=== PATIENT | female | born 1970 | race Caucasian/White ===

== ENCOUNTER 2020-06-22 19:56 | Emergency (ER) | payer BC ==
[~2020-06-22] VITALS: Ht 160 cm; Wt 80.7 kg
[2020-06-22 20:33] LABS: BASOPHILS # (AUTO) 0.1 (0.0-0.1); EOSINOPHILS # (AUTO) 0.3 (0.0-0.4); EOSINOPHILS % 2.8 % (0.0-6.0); HEMOGLOBIN 12.8 g/dL (12.0-16.0); LYMPHOCYTES # (AUTO) 2.4 (1.0-3.2); LYMPHOCYTES % 26.8 % (18.0-39.1); MEAN CORPUSCULAR HEMOGLOBIN 28.8 pg (28-32); MEAN CORPUSCULAR HGB CONC 32.8 g/dL (31-35); MEAN CORPUSCULAR VOLUME 87.6 fL (81-99); MONOCYTES # (AUTO) 0.7 (0.2-0.8); MONOCYTES % 8.3 % (4.4-11.3); NEUTROPHILS # (AUTO) 5.3 (2.1-6.9); NEUTROPHILS % 60.8 % (38.7-80.0); PLATELET COUNT 188 x10e3/uL (140-360); RED BLOOD COUNT 4.45 x10e6/uL (3.6-5.1)
[2020-06-22 20:47] LABS: ANION GAP 15.7 mmol/L (8-16); BLOOD UREA NITROGEN 11 mg/dL (7-26); BUN/CREATININE RATIO 13 (6-25); CALCIUM 9.5 mg/dL (8.4-10.2); CARBON DIOXIDE 25 mmol/L (22-29); CHLORIDE 101 mmol/L (98-107); CREATININE, SERUM 0.83 mg/dL (0.57-1.11); EST GLOMERULAR FILTRATION RATE > 60 ML/MIN (60-); GLUCOSE 97 mg/dL (74-118); POTASSIUM 3.7 mmol/L (3.5-5.1); SODIUM 138 mmol/L (136-145)
[2020-06-22 20:54] LABS: BILIRUBIN,URINE NEGATIVE (NEGATIVE); CLARITY,URINE SL CLOUDY (CLEAR); COLOR,URINE YELLOW (YELLOW); KETONES,URINE TRACE (NEGATIVE); LEUKOCYTE ESTERASE ,URINE NEGATIVE (NEGATIVE); NITRITE,URINE NEGATIVE (NEGATIVE); PROTEIN,URINE DIPSTICK NEGATIVE (NEGATIVE); URINE UROBILINOGEN 0.2 mg/dL (0.2 - 1)
--- NOTE | 2020-06-22 20:57 | Emergency Department Note ---
History of Present Illnes History of Present Illness Chief Complaint: Hypertension History of Present Illness This is a 50 year old female PRESENTS TO THE ER C/O ELEVATED BP; PT STATES SHE WAS AT AN URGENT CARE AND TOLD TO COME TO THE ER STATING "THEY COULD NOT HELP ME AND I WAS HAVING A HYPERTENSIVE CRISIS"; PT REPORTS BP AT URGENT WAS 165/101; PT REPORTS PURVIS X4 DAYS; PT DENIES CP OR SOB; DENIES DIZZINESS, BLURRED VISION OR N/V; NAD NOTED AT THIS TIME;. Historian: Patient Arrival Mode: Car Dance Choreographer Required: No Onset (how long ago): day(s) (4) Location: HEAD Quality: HEADACHE Radiation: Reports non-radiation Severity: mild Onset quality: gradual Duration (how long): day(s) (4) Timing of current episode: sporadic Progression: waxing and waning Chronicity: new Context: Denies recent illness, Denies recent surgery, Denies trauma/injury Relieving factors: none Exacerbating factors: none Associated symptoms: Reports denies other symptoms Past Medical/Family History Physician Review I have reviewed the patient's past medical and family history. Any updates have been documented here. Past Medical History Recent Fever: No Clinical Suspicion of Infectio: No New/Unexplained Change in Ment: No Past Medical History: Hypertension, Depression Past Surgical History: Other Surgery: X2 Social History Smoking Cessation: Never Smoker Alcohol Use: Occasional Any Illegal Drug Use: No Physically hurt or threatened: No Family History Family history of heart diseas: No Review of Systems Review of Systems Constitutional: Reports no symptoms EENTM: Reports no symptoms Cardiovascular: Reports no symptoms Respiratory: Reports no symptoms Gastrointestinal: Reports no symptoms Genitourinary: Reports no symptoms Musculoskeletal: Reports no symptoms Integumentary: Reports no symptoms Neurological: Reports as per HPI Psychological: Reports no symptoms Endocrine: Reports no symptoms Hematological/Lymphatic: Reports no symptoms Physical Exam Related Data Allergies: Coded Allergies: No Known Allergies (Unverified , 06/22/20) Triage Vital Signs Vital Signs Date Time Temp Pulse Resp B/P (MAP) Pulse Ox O2 Delivery O2 Flow Rate FiO2 06/22/20 20:18 99.8 76 18 155/100 100 Room Air Vital signs reviewed: Yes Physical Exam CONSTITUTIONAL Constitutional: Present well-developed, Present well-nourished; Absent distressed HENT HENT: Present normocephalic, Present atraumatic, Present oropharynx clear/moist, Present nose normal HENT L/R: Present left ext ear normal, Present right ext ear normal EYES Eyes: Reports PERRL, Reports conjunctivae normal NECK Neck: Present ROM normal PULMONARY Pulmonary: Present effort normal, Present breath sounds normal CARDIOVASCULAR Cardiovascular: Present regular rhythm, Present heart sounds normal, Present capillary refill normal, Present normal rate GASTROINTESTINAL Abdominal: Present soft, Present nontender, Present bowel sounds normal GENITOURINARY Genitourinary: Present exam deferred SKIN Skin: Present warm, Present dry MUSCULOSKELETAL Musculoskeletal: Present ROM normal NEUROLOGICAL Neurological: Present alert, Present oriented x 3, Present no gross motor or sensory deficits PSYCHOLOGICAL Psychological: Present mood/affect normal, Present judgement normal Results Laboratory Result Diagram: 06/22/20202206/22/202022 Laboratory Laboratory Tests Test 06/22/20 20:30 06/22/20 20:23 White Blood Count 8.79 x10e3/uL (4.8-10.8) Red Blood Count 4.45 x10e6/uL (3.6-5.1) Hemoglobin 12.8 g/dL (12.0-16.0) Hematocrit 39.0 % (34.2-44.1) Mean Corpuscular Volume 87.6 fL (81-99) Mean Corpuscular Hemoglobin 28.8 pg (28-32) Mean Corpuscular Hemoglobin Concent 32.8 g/dL (31-35) Red Cell Distribution Width 13.0 % (11.7-14.4) Platelet Count 188 x10e3/uL (140-360) Neutrophils (%) (Auto) 60.8 % (38.7-80.0) Lymphocytes (%) (Auto) 26.8 % (18.0-39.1) Monocytes (%) (Auto) 8.3 % (4.4-11.3) Eosinophils (%) (Auto) 2.8 % (0.0-6.0) Basophils (%) (Auto) 1.0 % (0.0-1.0) Neutrophils # (Auto) 5.3 (2.1-6.9) Lymphocytes # (Auto) 2.4 (1.0-3.2) Monocytes # (Auto) 0.7 (0.2-0.8) Eosinophils # (Auto) 0.3 (0.0-0.4) Basophils # (Auto) 0.1 (0.0-0.1) Absolute Immature Granulocyte (auto 0.03 x10e3/uL (0-0.1) Sodium Level 138 mmol/L (136-145) Potassium Level 3.7 mmol/L (3.5-5.1) Chloride Level 101 mmol/L (98-107) Carbon Dioxide Level 25 mmol/L (22-29) Anion Gap 15.7 mmol/L (8-16) Blood Urea Nitrogen 11 mg/dL (7-26) Creatinine 0.83 mg/dL (0.57-1.11) Estimat Glomerular Filtration Rate > 60 ML/MIN (60-) BUN/Creatinine Ratio 13 (6-25) Glucose Level 97 mg/dL (74-118) Calcium Level 9.5 mg/dL (8.4-10.2) Lab results reviewed: Yes Imaging Imaging results reviewed: Yes Impressions Procedure: [id number] CT/CT BRAIN WO Exam Date: Exam Time: REPORT STATUS: Signed History: Headaches Comparison studies: None Technique: Axial images were obtained from the skull base to the vertex. Coronal and sagittal reconstructions obtained from the axial data. Dose modulation, iterative reconstruction, and/or weight based adjustment of the mA/kV was utilized to reduce the radiation dose to as low as reasonably achievable. Intravenous contrast: None Findings: Scalp/skull: No abnormalities. No fractures, blastic or lytic lesions. Extra-axial spaces: No masses. No fluid collections. Brain sulci: Appropriate for age. Ventricles: Normal in size and configuration. No hydrocephalus. Parenchyma: No abnormal densities. No masses, hemorrhage, acute or chronic cortical vascular insults. Sellar/suprasellar region: No abnormalities Craniocervical junction: Patent foramen magnum. No Chiari one malformation. IMPRESSION: No intracranial abnormalities. Incidental findings: 1. Diffuse nonspecific opacification of the left middle ear and mastoid and off all the mastoid air cells 2. Degenerative changes of the partially visualized temporomandibular joints Signed by: Dr. Jesus Alberto Castro M.D. on 06/22/2020 9:07 PM Dictated By: JESUS ALBERTO CASTRO MD, MD Transcribed By: DEO on 06/22/202106 COPY TO: YENI PATEL MD~ Procedures 12 Lead ECG Interpretation ECG Interpretation : ECG: ECG 1 Dance Choreographer: Interpreted by ED physician Date: Jun 22, 2020 Time: 20:26 Prior ECG tracings: reviewed Rhythm: sinus rhythm Rate: normal BPM: 64 ST segments normal: Yes T waves normal: Yes Q waves: V1, V2 Clinical Impression: non-specific ECG Assessment & Plan Medical Decision Making MDM PT WITH INTERMITTENT HEADACHE FOR 4 DAYS AND ELEVATED BLOOD PRESSURE CBC, BMP, EKG, CT BRAIN, UA ORDERED TO EVAL FOR RENAL INSUFFICIENCY/FAILURE, INTRACRANIAL ABNORMALITY, UTI, ELECTROLYTE ABNORMALITY Assessment & Plan Final Impression: (1) Headache (2) HTN (hypertension) Depart Disposition: HOME, SELF-CARE Last Vital Signs Date Time Temp Pulse Resp B/P (MAP) Pulse Ox O2 Delivery O2 Flow Rate FiO2 06/22/20 20:18 99.8 76 18 155/100 100 Room Air YENI PATEL MD Jun 22, 2020 20:57
[2020-06-22 21:04] LABS: BACTERIA,URINE MODERATE /HPF; RBC,URINE 0-5 /HPF (0-5)
--- NOTE | 2020-06-22 21:11 | Diagnostic Imaging Report ---
History: Headaches Comparison studies: None Technique: Axial images were obtained from the skull base to the vertex. Coronal and sagittal reconstructions obtained from the axial data. Dose modulation, iterative reconstruction, and/or weight based adjustment of the mA/kV was utilized to reduce the radiation dose to as low as reasonably achievable. Intravenous contrast: None Findings: Scalp/skull: No abnormalities. No fractures, blastic or lytic lesions. Extra-axial spaces: No masses. No fluid collections. Brain sulci: Appropriate for age. Ventricles: Normal in size and configuration. No hydrocephalus. Parenchyma: No abnormal densities. No masses, hemorrhage, acute or chronic cortical vascular insults. Sellar/suprasellar region: No abnormalities Craniocervical junction: Patent foramen magnum. No Chiari one malformation. IMPRESSION: No intracranial abnormalities. Incidental findings: 1. Diffuse nonspecific opacification of the left middle ear and mastoid and off all the mastoid air cells 2. Degenerative changes of the partially visualized temporomandibular joints Signed by: Dr. Kerwin Castro M.D. on 06/22/2020 9:07 PM
--- OUTSIDE RECORDS SUMMARY | 2020-06-22 22:20 | XMS REPORT | Continuity of Care Document ---
Author Author [facility] t Organization [facility] Address [address] [place] [address] Phone Unavailable Care Team Providers Care Supervisor [address] Name Role Phone Linus PATEL Attphyedita Unavailable Problems Condition Name Condition Details Condition Category Status Onset Date Resolution Date Last Treatment Date Treating Clinician Comments Source Mixed anxiety and depressive disorder Mixed Anxiety and Depr essive Disorder Problem Active [facility] Hypertensive disorder Hypertensive Disorder Problem Active [facility] Allergies, Adverse Reactions, Alerts This patient has no known allergies or adverse reactions. Social History Smoking Status Start Date Stop Date Source Former Smoker [facility] rudi Medications Ordered Medication Name Filled Medication Name Start Date Stop Da te Current Medication? Ordering Clinician Indication Dosage Frequency Signature (SIG) Comments Components Source bupropion HCl XL 300 mg 24 hr tablet, ex tended release Take 1 tablet every day by oral route for 30 days. bupropion HCl XL 300 mg 24 hr tablet, ex tended release Take 1 tablet every day by oral route for 30 days. No 1 Q1D bupropion HCl XL 300 mg 24 hr tablet, extended release Take 1 tablet every day by oral route for 30 days. [facility] citalopram 40 mg tablet Take 1 tablet every day by ora l route. citalopram 40 mg tablet Take 1 tablet every day by oral route. No 1 Q1D citalopram 40 mg tablet Take 1 tablet every day by oral route. [facility] lisinopril 20 mg-hydrochlorothiazide 12. 5 mg tablet Take 2 tablets every day by oral route in the morning for 90 days. lisinopril 20 mg-hydrochlorothiazide 12. 5 mg tablet Take 2 tablets every day by oral route in the morning for 90 days. No 2 Q1D lisinopril 20 mg-hydrochlorothiazide 12.5 mg tablet Take 2 tablets every day by oral route in the morning for 90 days. [facility] zolpidem 10 mg tablet Take 1 tablet ever y day by oral route at bedtime for 30 days. zolpidem 10 mg tablet Take 1 tablet ever y day by oral route at bedtime for 30 days. No 1 Q1D zolpidem 10 mg tablet Take 1 tablet every day by oral route at bedtime for 30 days. [facility] Immunizations Ordered Immunization Name Filled Immunization Name Date Status Comments Source Tdap Tdap 2019-10-14 16:09:[address] [facility] influenza, injectable, quadrivalent, preservative free influenza, injectable, quadrivalent, preservative free 2019-10-14 16:09:21 Completed [facility] zoster recombinant - 0.5 mL vial(s) zoster recombinant - 0.5 mL vial(s) Unknown Completed [facility] Vital Signs Vital Name Observation Time Observation Value Comments Source BP Diastolic 2019-10-14 00:00:00 100 mm[Hg] [facility] Height 2019-10-14 00:00:00 63.75 [in_i] [facility] BMI (Body Mass Index) 2019-10-14 00:00:00 29.9 kg/m2 [facility] BP Systolic 2019-10-14 00:00:00 138 mm[Hg] [facility] Body Weight 2019-10-14 00:00:00 173 [lb_av] [facility] Procedures Procedure Date / Time Performed Performing Clinician Sour e MAMMO, screening, digital, bilateral 2019-10-14 00:00:00 [facility] bone density 2019-10-14 00:00:00 [facility] Caesarean Section 2000-10-09 00:00:00 [facility] Caesarean Section 1998-10-09 00:00:00 [facility] Plan of Care Planned Activity Planned Date Details Comments Source Diagnostic Test Pending 2019-10-14 00:00:00 CBC w/ auto diff [code = CBC w/ auto diff] [facility] Diagnostic Test Pending 2019-10-14 00:00:00 CMP, serum or pl asma [code = CMP, serum or plasma] [facility] Diagnostic Test Pending 2019-10-14 00:00:00 lipid panel, ser um [code = lipid panel, serum] [facility] Diagnostic Test Pending 2019-10-14 00:00:00 TSH, serum or pl asma [code = TSH, serum or plasma] [facility] Diagnostic Test Pending 2019-10-14 00:00:00 urinalysis, dips tick [code = urinalysis, dipstick] [facility] Encounters Start Date/Time End Date/Time Encounter Type Admission Type Attendi [facility] Care Department Encounter ID Source 2019-10-14 00:00:00 2019-10-14 00:00:00 Anastasia Albarran MD: [id number] [place] [address], [facility] [id number] [facility] Results Test Description Test Time Test Comments Results Result Comments Source CT BRAIN WO 2020-06-22 21:04:00 [facility] [address] [place], [place] [address] Patient Name: DAKOTA AUGUSTINE MR #: [id number] : 1970 Age/Sex: 50/F Req #: [id number] Adm Physician: Ordered by: YENI PATEL MD Report #: [id number] Location: ER Room/Bed: Procedure: [id number] CT/CT BRAIN WO Exam Date: Exam Time: REPORT STATUS: Signed History: Headaches Comparison studies: None Technique: Axial images were obtained from the skull base to the vertex. Coronal and sagittal reconstructions obtained from the axial data. Dose modulation, iterative reconstruction, and/or weight based adjustment of the mA/kV was utilized to reduce the radiation dose to as low as reasonably achievable. Intravenous contrast: None Findings: Scalp/skull: No abnormalities. No fractures, blastic or lytic lesions. Extra-axial spaces: No masses. No fluid collections. Brain sulci: Appropriate for age. Ventricles: Normal in size and configuration. No hydrocephalus. Parenchyma: No abnormal densities. No masses, hemorrhage, acute or chronic cortical vascular insults. Sellar/suprasellar region: No abnormalities Craniocervical junction: Patent foramen magnum. No Chiari one malformation. IMPRESSION: No intracranial abnormalities. Incidental findings: 1. Diffuse nonspecific opacification of the left middle ear and mastoid and off all the mastoid air cells 2. Degenerative changes of the partially visualized temporomandibular joints Signed by: Dr. Kerwin Castro M.D. on 06/22/2020 9:07 PM Dictated By: KERWIN CASTRO MD, MD 06 Transcribed By: DEO on 06/22/202106 COPY TO: YENI PATEL MD
== END 2020-06-22 22:10 | disposition home or self-care (01) ==
LOC: ER 20:04
DX: R51 Headache (principal); I10 Essential (primary) hypertension; F32.9 Major depressive disorder, single episode, unspecified
CPT/HCPCS: 36415; 70450; 80048; 81001; 85025; 93005; 99284